=== PATIENT | female | born 1955 | race Caucasian/White ===

== ENCOUNTER 2022-05-23 05:39 | Inpatient (IN) ==
[2022-05-23] MEDS: NS 250 ML IV 250 ML IV SCH (06:15)
[2022-05-23] MEDS ORDERED: NS 250 ML IV 250 ML IV ONE (06:29)
[2022-05-23 08:02] VITALS: BMI 24.0
[2022-05-23] MEDS: LR 1,000 ML IV 1,000 ML IV SCH ×3 (08:52→20:12)
[2022-05-23] MEDS ORDERED: PROTONIX INJ 40 MG VIAL IVP SCH (09:00)
[2022-05-23 09:09] LABS: HEMATOCRIT 22.6 % (36.0-47.0); HEMOGLOBIN 7.8 g/dL (12.0-16.0)
[2022-05-23] MEDS ORDERED: PROVENTIL NEB TX 0.083% 2.5MG/ 3ML NEB ONE (13:24)
[2022-05-23] MEDS ORDERED: PROVENTIL NEB TX 0.083% 2.5MG/ 3ML ONE ×2 (13:25→23:00)
--- NOTE | 2022-05-23 13:54 | RAD ---
HISTORYSOB Relevant Clinical InformationSTUDYCHEST, 1 VIEWCOMPARISONNone availableFINDINGSThe cardiac silhouette is normal in size. No focal infiltrate or significant effusion is identified. Remote right-sided rib fractures noted. There is no pneumothorax.IMPRESSIONNo acute cardiopulmonary abnormality.Electronically signed by: SANJAY SANTOS (May 23, 2022 13:53:07)
--- NOTE | 2022-05-23 22:32 | DR.H&P ---
H&P History & Physical for Day of: H&P Date: 05/23/22 Chief Complaint Chief Complaint: Bloody bowel movements and Hgb= 6.1 Allergies Allergies Allergy/AdvReac Type Severity Reaction Status Date / Time codeine Allergy Intermediate Verified 05/23/22 22:52 History of Present Illness History of Present Illness: This 66 year old female presented to the emergency room in [place], [place] complaining of dark , tarry bloody stools. Her hemoglobin was 6. 1. CT scan of the abdomen showed evidence of possible thickening of the small bowel with consideration for lymphoma , possible enteritis . Patient also had evidence of incarcerated right inguinal hernia with early closed-loop obstruction suggesting surgical consultation. Patient transferred to [facility] under my care. Past medical history significant for coronary artery disease status post coronary artery stenting in the past . Hx of congestive heart failure. History of atrial fibrillation on an ticoagulation. History of diabetes. Continues with significant tobacco abuse. The patient also has had a history of salicylate overdose in the past. She was transfused two units of packed red blood cells and was transferred to my Hospital. Acetaminophen and salicylate levels were minimal. Also history of COPD. tarry Past Medical History Past Medical History: Anemia, CHF, COPD, Coronary Artery Disease (stent x1 ), Diabetes, Dyslipidemia and Hypertension Additional Medical History: tobacco abuse, atrial fibrillation Past Surgical History Surgical History: Other (tubal ligation) Family History Family Medical History: Cancer and Heart Failure Social History Does patient currently use any type of tobacco product: Yes Have you used tobacco products in the last 12 months: Yes Type of Tobacco Use: Cigarettes How many years tobacco product used: 50 Packs per day or dips/chews per day: 2 Alcohol Use: None Drug Use: None Medications Home Medications: codeine Allergy (Unknown, Verified 05/23/22 07:39) Actos 15 mg daily Protonix 40 mg daily Lasix 40 mg daily Eliquis 5 mg BID lopressor 12. 5 mg TID lisinopril 40 mg p a i d Montelukast 10 mg at bedtime albuterol inhalation treatment treatments PRN Labs Result Diagrams: 05/23/22 08:58 Labs: Laboratory Hgb 7.8 g/dL (12.0-16.0) L 05/23/22 08:58 Hct 22.6 % (36.0-47.0) L 05/23/22 08:58 B-Natriuretic Peptide 460 pg/mL (0-79) H 05/23/22 14:00 SARS-CoV-2 (PCR) Negative (NEGATIVE) 05/23/22 20:00 labs at [facility] , hemoglobin equals 6. 1 ,INR equal 1. 65 ,liver function test within normal limits ,Suzan and equals 1. 40, BUN = 68,acetaminophen level less than 10 normal being 0 to 10 ,salicylate level zero , Review of Systems Constitutional: See HPI Eyes: No Symptoms Reported ENT: No Symptoms Reported Respiratory: See HPI Cardiovascular: No Symptoms Reported Gastrointestinal: See HPI Genitourinary: No Symptoms Reported Musculoskeletal: No Symptoms Reported Skin: No Symptoms Reported Neurological: No Symptoms Reported Physical Exam Vital Signs: Temperature 97.5 F Pulse Rate [Left Radial] 96 Respiratory Rate 28 Blood Pressure [Left Arm] 103/55 O2 Sat by Pulse Oximetry 100 Oriented: Normal, Time, Person and Place Eyes: Normal Ear: Normal Nose: Normal Throat: Normal Respiratory: Clear Throughout Cardiovascular: Normal and Other (history of atrial fibrillation but is sinus rhythm now. ) : Normal Auscultation: Bowel Sounds: Normal Palpation: Other (mildly tender in epigastrium) Skin: Normal Musculoskeletal: Normal Psychiatric: Normal Mood Description: Calm Affect: Anxious Speech Pattern: Clear Assessment/Plan (1) GI bleed: Status: Acute Plan: Protonix drip. Transfuse blood as necessary. Sequential CBCs. Hold Eliquis . Currently in sinus rhythm. (2) Incarcerated right inguinal hernia: Status: Acute Plan: Once GI bleed is worked up will plan laparoscopy and repair of hernia and will be able to look at bowel as described on CT as being thickened. (3) Atrial fibrillation: Status: Acute Plan: Hold Eliquis, currently in sinus rhythm (4) Hypertension: Status: Acute Plan: usual home medications (5) Congestive heart failure: Status: Acute Plan: Continue lasix. Monitor with BNP. (6) Dyslipidemia: Status: Acute (7) COPD (chronic obstructive pulmonary disease): Status: Acute Plan: Montelukast and albuterol inhalers PRN (8) Diabetes 1.5, managed as type 1: Status: Acute Plan: sliding scale insulin (9) Nicotine abuse: Status: Acute Plan: Nicotine patch (10) Coronary artery disease: Status: Acute Plan: Begin home medications, cardiac surgeon , evaluate any chest pain Review H&P Reviewed: Yes Patient was examined?: Yes
[2022-05-23] MEDS: PROVENTIL NEB TX 0.083% 2.5MG/ 3ML NEB SCH (23:02)
[2022-05-23] MEDS: ACCUNEB 1.25 MG NEBULE NEB SCH (23:02)
[2022-05-23] MEDS ORDERED: NovoLIN R (or HumuLIN R) SC PRN (23:07)
[2022-05-23] MEDS ORDERED: ZOFRAN INJ 4 MG VIAL IVP PRN (23:28)
[2022-05-23] MEDS ORDERED: DILAUDID INJ IVP PRN (23:28)
[2022-05-23] MEDS ORDERED: NS 500 ML IV 500 ML IV ONE (23:59)
[2022-05-24] MEDS ORDERED: NS 500 ML IV 500 ML IV ONE (00:06)
[2022-05-24] MEDS: LR 1,000 ML IV 1,000 ML IV SCH ×2 (00:11→08:34)
[2022-05-24] MEDS: NS 250 ML IV 250 ML IV SCH ×2 (00:12→09:41)
[2022-05-24] MEDS: ACCUNEB 1.25 MG NEBULE NEB SCH (00:20)
[2022-05-24] MEDS: PROVENTIL NEB TX 0.083% 2.5MG/ 3ML NEB SCH ×2 (00:25→05:45)
[2022-05-24 00:28] LABS: BASOPHILS # (AUTO) 0.1 X10^3/uL (0.0-0.1); BASOPHILS % (AUTO) 0.6 % (0.2-1.0); EOSINOPHILS # (AUTO) 0.2 x10^3/uL (0.0-0.2); MONOCYTES # (AUTO) 0.8 x10^3/uL (0.3-0.8); NEUTROPHILS % (AUTO) 56.5 % (42.0-75.0)
[2022-05-24] MEDS ORDERED: NITRO-BID OINT 2% Multi-Dose tube TD ONE (00:28)
[2022-05-24 00:34] LABS: EOSINOPHILS % (AUTO) 2.6 % (0.9-2.9); LYMPHOCYTES # (AUTO) 2.9 X10^3/uL (1.3-2.9); LYMPHOCYTES % (AUTO) 31.4 % (21.0-51.0); MEAN CORPUSCULAR HEMOGLOBIN 30.4 pg (27.0-34.0); MEAN CORPUSCULAR HGB CONC 34.1 g/dL (33.0-35.0); MEAN CORPUSCULAR VOLUME 89.2 fL (80.0-100.0); MEAN PLATELET VOLUME 9.4 fL (7.4-11.0); MONOCYTES % (AUTO) 8.9 % (0.0-13.0); NEUTROPHILS # (AUTO) 5.1 x10^3/uL (2.2-4.8); RED BLOOD COUNT 1.66 X10^6/uL (3.5-5.4); RED CELL DISTRIBUTION WIDTH 17.5 % (11.6-16.5); WHITE BLOOD COUNT 9.1 X10^3/uL (3.6-10.0)
[2022-05-24 00:36] LABS: HEMOGLOBIN 5.1 g/dL (12.0-16.0)
[2022-05-24 00:37] LABS: HEMATOCRIT 14.8 % (36.0-47.0)
[2022-05-24 07:09] LABS: BASOPHILS % (AUTO) 0.5 % (0.2-1.0); EOSINOPHILS # (AUTO) 0.2 x10^3/uL (0.0-0.2); EOSINOPHILS % (AUTO) 2.1 % (0.9-2.9); LYMPHOCYTES # (AUTO) 1.9 X10^3/uL (1.3-2.9); LYMPHOCYTES % (AUTO) 26.2 % (21.0-51.0); MEAN CORPUSCULAR HEMOGLOBIN 31.3 pg (27.0-34.0); MEAN CORPUSCULAR HGB CONC 35.1 g/dL (33.0-35.0); MEAN PLATELET VOLUME 9.3 fL (7.4-11.0); MONOCYTES # (AUTO) 0.7 x10^3/uL (0.3-0.8); MONOCYTES % (AUTO) 9.8 % (0.0-13.0); NEUTROPHILS # (AUTO) 4.4 x10^3/uL (2.2-4.8); NEUTROPHILS % (AUTO) 61.4 % (42.0-75.0); RED BLOOD COUNT 1.92 X10^6/uL (3.5-5.4); RED CELL DISTRIBUTION WIDTH 17.3 % (11.6-16.5); WHITE BLOOD COUNT 7.2 X10^3/uL (3.6-10.0)
[2022-05-24 07:10] LABS: BLOOD UREA NITROGEN 68 mg/dL (7-18); CARBON DIOXIDE 24.7 mmol/L (21-32); CHLORIDE 107 mmol/L (98-107); CREATININE 1.72 mg/dL (0.55-1.02); SODIUM 139 mmol/L (136-145); eGFR NON BLACK RACES 32 (>60)
[2022-05-24 07:14] LABS: HEMATOCRIT 17.1 % (36.0-47.0)
[2022-05-24] MEDS ORDERED: ZESTRIL TAB 20 MG PO SCH (09:00)
[2022-05-24] MEDS ORDERED: PROTONIX INJ 40 MG VIAL 80 MG in NS 100 ML IV 80 ML IV SCH ×4 (09:00)
[2022-05-24] MEDS ORDERED: LOPRESSOR TAB 25 MG PO SCH (09:00)
[2022-05-24] MEDS ORDERED: NICOTINE PATCH TD SCH (09:00)
[2022-05-24] MEDS ORDERED: LASIX PO SCH (09:00)
[2022-05-24 11:12] VITALS: BP 100/57
--- NOTE | 2022-05-24 13:45 | W.DIS.FURT ---
Summary of Discharge Discharge Summary of Date Date of Exam: 05/24/22 Admission Date Date of Admission: 05/23/22 Admission Diagnosis Hospital Course: This 66 year old female presented to the emergency room in [facility] complaining of dark tarry stools and mild abdominal pain. Hemoglobin was 6. 1. CT scan of abdomen showed evidence of possible right inguinal hernia with incarceration and possible early closed loop obstruction with questionable enteritis of the small bowel versus lymphoma. She was transferred to [facility] in [facility] for higher level of care and I was consulted to see the patient. She was started on IV Protonix and was given two units of packed red blood cells. She was hempdynamilcally stable. Past medical history is extensive consistent with history of coronary artery disease and multiple coronary stents, tobacco abuse, congestive heart failure, diabetes, dyslipidemia, hypertension, and atrial fibrillation .Her medications included Lasix 40 mg daily, Actos 15 mg daily, Protonix 40 mg daily ,Eliquis 5 mg BID ,lopressor 12. 5 mg BID, lisinopril 40 mg daily , Montelukast 10 mg at bedtime, and albuterol inhalation treatment. She received two units of blood and was hemodynamically stable. F/U hemoglobin was 7.8 Later the afternoon of admission she complained of shortness of breath and wheezing which was treated with an albuterol inhaler. This resolved the problem. Chest x-ray showed no infiltrates and no evidence of pulmonary edema. The BNP was elevated at 460. She was started on her usual medication including Lasix. Repeat BNP was 202. I saw her the afternoon of the admission and she was well and s She was in sinus rhythm and stable. Later that night she complained of chest pain and repeat hemoglobin was now 5. 1. She was finishing her third unit of blood andwass still complaining of chest pain. This resolved completely once all three units of blood were infused. She has remained hemodynamically stable with no acute EKG changes. She has been seen by Cardiology, Dr Mendoza , who recommend transfer to [facility] for cardiac catheterization. I t is unclear whether she has continued to bleed. Protonix IV have been given intermittently and has been changed to a continuous drip. Abdomen remains benign. The chest pain and elevated troponin needs to be addressed before considering laparoscopy to assess the hernia and possible small bowel lymphoma. Vital Signs: Vital Signs (72 hours) 08/30/22 06:15 05/23/22 07:15 05/23/22 05:56 Temperature 98.2 F 98.0 F Pulse Rate Pulse Rate [Left Radial] 92 H 89 Respiratory Rate 18 18 Blood Pressure Blood Pressure [Left Arm] 144/66 133/64 O2 Sat by Pulse Oximetry 100 98 Oxygen Delivery Method Nasal Cannula Nasal Cannula Nasal Cannula Oxygen Flow Rate 2 FIO2% 05/23/22 07:00 05/23/22 08:00 05/23/22 09:00 Temperature 97.7 F 98.0 F Pulse Rate Pulse Rate [Left Radial] 91 H 81 Respiratory Rate 21 22 Blood Pressure Blood Pressure [Left Arm] 147/67 142/73 O2 Sat by Pulse Oximetry 100 98 Oxygen Delivery Method Nasal Cannula Nasal Cannula Nasal Cannula Oxygen Flow Rate 2 FIO2% 05/23/22 10:00 05/23/22 12:00 05/23/22 12:50 Temperature Pulse Rate Pulse Rate [Left Radial] 94 H 94 H Respiratory Rate 16 18 Blood Pressure Blood Pressure [Left Arm] 139/62 94/50 O2 Sat by Pulse Oximetry 98 100 Oxygen Delivery Method Nasal Cannula Nasal Cannula Oxygen Flow Rate FIO2% 35 05/23/22 13:00 05/23/22 14:00 05/23/22 15:00 Temperature 97.1 F L Pulse Rate Pulse Rate [Left Radial] 90 90 80 Respiratory Rate 24 25 H 18 Blood Pressure Blood Pressure [Left Arm] 93/56 113/54 87/52 O2 Sat by Pulse Oximetry 100 100 100 Oxygen Delivery Method Bi-pap Bi-pap Bi-pap Oxygen Flow Rate FIO2% 05/23/22 16:00 05/23/22 17:00 05/23/22 18:00 Temperature Pulse Rate Pulse Rate [Left Radial] 91 H 96 H 97 H Respiratory Rate 24 23 24 Blood Pressure Blood Pressure [Left Arm] 125/65 104/64 117/58 O2 Sat by Pulse Oximetry 100 93 L 100 Oxygen Delivery Method Bi-pap Nasal Cannula Nasal Cannula Oxygen Flow Rate FIO2% 05/23/22 19:00 05/23/22 19:00 05/23/22 20:00 Temperature 97.5 F L Pulse Rate Pulse Rate [Left Radial] 97 H 96 H Respiratory Rate 31 H 28 H Blood Pressure Blood Pressure [Left Arm] 117/58 103/55 O2 Sat by Pulse Oximetry 100 100 Oxygen Delivery Method Nasal Cannula Nasal Cannula Nasal Cannula Oxygen Flow Rate 4 FIO2% 05/23/22 19:00 05/23/22 21:00 05/23/22 22:00 Temperature Pulse Rate Pulse Rate [Left Radial] 95 H 93 H Respiratory Rate 21 16 Blood Pressure Blood Pressure [Left Arm] 125/61 104/56 O2 Sat by Pulse Oximetry 100 100 Oxygen Delivery Method Nasal Cannula Nasal Cannula Nasal Cannula Oxygen Flow Rate 4 FIO2% 05/23/22 23:00 05/24/22 00:00 05/24/22 00:25 Temperature Pulse Rate Pulse Rate [Left Radial] 89 94 H Respiratory Rate 19 26 H Blood Pressure Blood Pressure [Left Arm] 98/70 90/62 O2 Sat by Pulse Oximetry 100 96 Oxygen Delivery Method Nasal Cannula Nasal Cannula Nasal Cannula Oxygen Flow Rate 4 FIO2% 36 05/24/22 00:25 05/24/22 00:00 05/23/22 23:02 Temperature 97.9 F Pulse Rate 94 H Pulse Rate [Left Radial] 94 H Respiratory Rate 26 H Blood Pressure Blood Pressure [Left Arm] 90/62 O2 Sat by Pulse Oximetry 100 96 Oxygen Delivery Method Nasal Cannula Nasal Cannula Oxygen Flow Rate 4 FIO2% 36 05/23/22 23:02 05/24/22 01:00 05/24/22 02:00 Temperature Pulse Rate 91 H Pulse Rate [Left Radial] 91 H 96 H Respiratory Rate 22 30 H Blood Pressure Blood Pressure [Left Arm] 89/50 90/52 O2 Sat by Pulse Oximetry 95 100 100 Oxygen Delivery Method Nasal Cannula Nasal Cannula Oxygen Flow Rate FIO2% 05/24/22 05:00 05/24/22 04:00 05/24/22 03:00 Temperature 97.9 F 97.8 F Pulse Rate Pulse Rate [Left Radial] 91 H 94 H 92 H Respiratory Rate 24 20 20 Blood Pressure Blood Pressure [Left Arm] 95/50 96/52 103/50 O2 Sat by Pulse Oximetry 100 100 100 Oxygen Delivery Method Nasal Cannula Nasal Cannula Nasal Cannula Oxygen Flow Rate FIO2% 05/24/22 06:00 05/24/22 07:00 05/24/22 07:49 Temperature 97.7 F Pulse Rate 86 Pulse Rate [Left Radial] 82 Respiratory Rate 16 20 Blood Pressure Blood Pressure [Left Arm] 116/55 O2 Sat by Pulse Oximetry 100 100 Oxygen Delivery Method Nasal Cannula Nasal Cannula Oxygen Flow Rate 4 FIO2% 05/24/22 07:50 05/24/22 07:51 05/24/22 07:52 Temperature Pulse Rate 89 92 H 87 Pulse Rate [Left Radial] Respiratory Rate 23 18 21 Blood Pressure Blood Pressure [Left Arm] O2 Sat by Pulse Oximetry 100 100 100 Oxygen Delivery Method Oxygen Flow Rate FIO2% 05/24/22 07:53 05/24/22 07:54 05/24/22 07:55 Temperature Pulse Rate 94 H 99 H 95 H Pulse Rate [Left Radial] Respiratory Rate 18 20 24 Blood Pressure Blood Pressure [Left Arm] O2 Sat by Pulse Oximetry 100 100 100 Oxygen Delivery Method Oxygen Flow Rate FIO2% 05/24/22 07:56 05/24/22 07:57 05/24/22 07:58 Temperature Pulse Rate 93 H 94 H 94 H Pulse Rate [Left Radial] Respiratory Rate 22 19 22 Blood Pressure Blood Pressure [Left Arm] O2 Sat by Pulse Oximetry 100 100 100 Oxygen Delivery Method Oxygen Flow Rate FIO2% 05/24/22 07:59 05/24/22 08:00 05/24/22 08:00 Temperature 98.3 F Pulse Rate 94 H 93 H Pulse Rate [Left Radial] Respiratory Rate 18 20 Blood Pressure 112/64 Blood Pressure [Left Arm] O2 Sat by Pulse Oximetry 100 100 Oxygen Delivery Method Oxygen Flow Rate FIO2% 05/24/22 08:01 05/24/22 08:02 05/24/22 08:03 Temperature Pulse Rate 98 H 100 H 96 H Pulse Rate [Left Radial] Respiratory Rate 23 20 19 Blood Pressure Blood Pressure [Left Arm] O2 Sat by Pulse Oximetry 100 100 100 Oxygen Delivery Method Oxygen Flow Rate FIO2% 05/24/22 08:04 05/24/22 08:05 05/24/22 08:06 Temperature Pulse Rate 101 H 91 H 92 H Pulse Rate [Left Radial] Respiratory Rate 18 19 20 Blood Pressure Blood Pressure [Left Arm] O2 Sat by Pulse Oximetry 100 100 100 Oxygen Delivery Method Oxygen Flow Rate FIO2% 05/24/22 08:07 05/24/22 08:08 05/24/22 08:09 Temperature Pulse Rate 93 H 94 H 92 H Pulse Rate [Left Radial] Respiratory Rate 18 17 18 Blood Pressure Blood Pressure [Left Arm] O2 Sat by Pulse Oximetry 100 98 100 Oxygen Delivery Method Oxygen Flow Rate FIO2% 05/24/22 08:10 05/24/22 08:11 05/24/22 08:12 Temperature Pulse Rate 90 88 91 H Pulse Rate [Left Radial] Respiratory Rate 23 23 19 Blood Pressure Blood Pressure [Left Arm] O2 Sat by Pulse Oximetry 100 100 100 Oxygen Delivery Method Oxygen Flow Rate FIO2% 05/24/22 08:13 05/24/22 08:14 05/24/22 08:15 Temperature Pulse Rate 89 95 H 95 H Pulse Rate [Left Radial] Respiratory Rate 21 20 18 Blood Pressure Blood Pressure [Left Arm] O2 Sat by Pulse Oximetry 100 93 L 100 Oxygen Delivery Method Oxygen Flow Rate FIO2% 05/24/22 08:16 05/24/22 08:17 05/24/22 08:18 Temperature Pulse Rate 92 H 94 H 94 H Pulse Rate [Left Radial] Respiratory Rate 24 17 18 Blood Pressure Blood Pressure [Left Arm] O2 Sat by Pulse Oximetry 100 100 100 Oxygen Delivery Method Oxygen Flow Rate FIO2% 05/24/22 08:19 05/24/22 08:20 05/24/22 08:21 Temperature Pulse Rate 92 H 93 H 93 H Pulse Rate [Left Radial] Respiratory Rate 20 19 18 Blood Pressure Blood Pressure [Left Arm] O2 Sat by Pulse Oximetry 100 100 100 Oxygen Delivery Method Oxygen Flow Rate FIO2% 05/24/22 08:22 05/24/22 08:23 05/24/22 08:24 Temperature Pulse Rate 94 H 94 H 94 H Pulse Rate [Left Radial] Respiratory Rate 22 20 22 Blood Pressure Blood Pressure [Left Arm] O2 Sat by Pulse Oximetry 100 100 100 Oxygen Delivery Method Oxygen Flow Rate FIO2% 05/24/22 08:25 05/24/22 08:26 05/24/22 08:27 Temperature Pulse Rate 91 H 92 H Pulse Rate [Left Radial] Respiratory Rate 22 20 Blood Pressure 98/55 Blood Pressure [Left Arm] O2 Sat by Pulse Oximetry 100 100 Oxygen Delivery Method Oxygen Flow Rate FIO2% 05/24/22 08:27 05/24/22 08:28 05/24/22 08:29 Temperature Pulse Rate 89 91 H 89 Pulse Rate [Left Radial] Respiratory Rate 19 21 20 Blood Pressure Blood Pressure [Left Arm] O2 Sat by Pulse Oximetry 100 100 100 Oxygen Delivery Method Oxygen Flow Rate FIO2% 05/24/22 08:30 05/24/22 08:31 05/24/22 08:32 Temperature Pulse Rate 90 90 89 Pulse Rate [Left Radial] Respiratory Rate 19 21 20 Blood Pressure Blood Pressure [Left Arm] O2 Sat by Pulse Oximetry 100 100 100 Oxygen Delivery Method Oxygen Flow Rate FIO2% 05/24/22 08:33 05/24/22 08:34 05/24/22 08:35 Temperature Pulse Rate 90 90 90 Pulse Rate [Left Radial] Respiratory Rate 23 19 20 Blood Pressure Blood Pressure [Left Arm] O2 Sat by Pulse Oximetry 100 100 100 Oxygen Delivery Method Oxygen Flow Rate FIO2% 05/24/22 08:36 05/24/22 08:15 05/24/22 08:37 Temperature Pulse Rate 90 91 H Pulse Rate [Left Radial] Respiratory Rate 18 22 Blood Pressure Blood Pressure [Left Arm] O2 Sat by Pulse Oximetry 100 100 Oxygen Delivery Method Nasal Cannula Oxygen Flow Rate 4 FIO2% 36 05/24/22 08:38 05/24/22 08:39 05/24/22 08:40 Temperature Pulse Rate 92 H 96 H 95 H Pulse Rate [Left Radial] Respiratory Rate 21 29 H 20 Blood Pressure Blood Pressure [Left Arm] O2 Sat by Pulse Oximetry 100 100 100 Oxygen Delivery Method Oxygen Flow Rate FIO2% 05/24/22 08:41 05/24/22 08:42 05/24/22 08:43 Temperature Pulse Rate 94 H 93 H 91 H Pulse Rate [Left Radial] Respiratory Rate 20 20 19 Blood Pressure Blood Pressure [Left Arm] O2 Sat by Pulse Oximetry 100 100 100 Oxygen Delivery Method Oxygen Flow Rate FIO2% 05/24/22 08:44 05/24/22 08:45 05/24/22 08:46 Temperature Pulse Rate 92 H 90 94 H Pulse Rate [Left Radial] Respiratory Rate 20 24 22 Blood Pressure Blood Pressure [Left Arm] O2 Sat by Pulse Oximetry 100 100 100 Oxygen Delivery Method Oxygen Flow Rate FIO2% 05/24/22 08:47 05/24/22 08:47 05/24/22 08:48 Temperature Pulse Rate 92 H 89 Pulse Rate [Left Radial] Respiratory Rate 19 22 Blood Pressure 99/56 Blood Pressure [Left Arm] O2 Sat by Pulse Oximetry 100 100 Oxygen Delivery Method Oxygen Flow Rate FIO2% 05/24/22 08:49 05/24/22 08:50 05/24/22 08:51 Temperature Pulse Rate 87 90 91 H Pulse Rate [Left Radial] Respiratory Rate 20 24 22 Blood Pressure Blood Pressure [Left Arm] O2 Sat by Pulse Oximetry 100 100 100 Oxygen Delivery Method Oxygen Flow Rate FIO2% 05/24/22 08:52 05/24/22 08:53 05/24/22 08:54 Temperature Pulse Rate 86 88 90 Pulse Rate [Left Radial] Respiratory Rate 20 21 22 Blood Pressure Blood Pressure [Left Arm] O2 Sat by Pulse Oximetry 100 100 100 Oxygen Delivery Method Oxygen Flow Rate FIO2% 05/24/22 08:55 05/24/22 08:56 05/24/22 08:57 Temperature Pulse Rate 89 92 H 93 H Pulse Rate [Left Radial] Respiratory Rate 20 18 19 Blood Pressure Blood Pressure [Left Arm] O2 Sat by Pulse Oximetry 100 100 100 Oxygen Delivery Method Oxygen Flow Rate FIO2% 05/24/22 08:58 05/24/22 08:59 05/24/22 09:00 Temperature Pulse Rate 94 H 93 H Pulse Rate [Left Radial] Respiratory Rate 24 20 Blood Pressure 100/58 Blood Pressure [Left Arm] O2 Sat by Pulse Oximetry 100 100 Oxygen Delivery Method Oxygen Flow Rate FIO2% 05/24/22 09:00 05/24/22 09:01 05/24/22 09:02 Temperature Pulse Rate 95 H 95 H 96 H Pulse Rate [Left Radial] Respiratory Rate 23 20 18 Blood Pressure Blood Pressure [Left Arm] O2 Sat by Pulse Oximetry 98 98 98 Oxygen Delivery Method Oxygen Flow Rate FIO2% 05/24/22 09:03 05/24/22 09:04 05/24/22 09:05 Temperature Pulse Rate 94 H 94 H 92 H Pulse Rate [Left Radial] Respiratory Rate 17 20 23 Blood Pressure Blood Pressure [Left Arm] O2 Sat by Pulse Oximetry 98 98 98 Oxygen Delivery Method Oxygen Flow Rate FIO2% 05/24/22 09:06 05/24/22 09:07 05/24/22 09:08 Temperature Pulse Rate 95 H 91 H 92 H Pulse Rate [Left Radial] Respiratory Rate 20 23 20 Blood Pressure Blood Pressure [Left Arm] O2 Sat by Pulse Oximetry 99 100 100 Oxygen Delivery Method Oxygen Flow Rate FIO2% 05/24/22 09:09 05/24/22 09:10 05/24/22 10:06 Temperature Pulse Rate 90 89 89 Pulse Rate [Left Radial] Respiratory Rate 20 20 21 Blood Pressure Blood Pressure [Left Arm] O2 Sat by Pulse Oximetry 100 100 100 Oxygen Delivery Method Oxygen Flow Rate FIO2% 05/24/22 10:07 05/24/22 10:08 05/24/22 10:09 Temperature Pulse Rate 87 86 86 Pulse Rate [Left Radial] Respiratory Rate 21 18 19 Blood Pressure Blood Pressure [Left Arm] O2 Sat by Pulse Oximetry 100 100 100 Oxygen Delivery Method Oxygen Flow Rate FIO2% 05/24/22 10:10 05/24/22 10:11 05/24/22 10:12 Temperature Pulse Rate 89 87 87 Pulse Rate [Left Radial] Respiratory Rate 27 H 22 25 H Blood Pressure Blood Pressure [Left Arm] O2 Sat by Pulse Oximetry 100 100 100 Oxygen Delivery Method Oxygen Flow Rate FIO2% 05/24/22 10:13 05/24/22 10:14 05/24/22 10:15 Temperature Pulse Rate 89 85 86 Pulse Rate [Left Radial] Respiratory Rate 19 21 20 Blood Pressure Blood Pressure [Left Arm] O2 Sat by Pulse Oximetry 100 100 100 Oxygen Delivery Method Oxygen Flow Rate FIO2% 05/24/22 10:16 05/24/22 10:17 05/24/22 10:18 Temperature Pulse Rate 86 87 85 Pulse Rate [Left Radial] Respiratory Rate 30 H 21 19 Blood Pressure Blood Pressure [Left Arm] O2 Sat by Pulse Oximetry 100 99 100 Oxygen Delivery Method Oxygen Flow Rate FIO2% 05/24/22 10:19 05/24/22 10:20 05/24/22 10:21 Temperature Pulse Rate 89 88 85 Pulse Rate [Left Radial] Respiratory Rate 31 H 21 20 Blood Pressure Blood Pressure [Left Arm] O2 Sat by Pulse Oximetry 100 100 99 Oxygen Delivery Method Oxygen Flow Rate FIO2% 05/24/22 10:22 05/24/22 10:23 05/24/22 10:24 Temperature Pulse Rate 85 88 87 Pulse Rate [Left Radial] Respiratory Rate 35 H 30 H 26 H Blood Pressure Blood Pressure [Left Arm] O2 Sat by Pulse Oximetry 99 100 100 Oxygen Delivery Method Oxygen Flow Rate FIO2% 05/24/22 10:25 05/24/22 10:26 05/24/22 10:27 Temperature Pulse Rate 87 86 84 Pulse Rate [Left Radial] Respiratory Rate 41 H 20 23 Blood Pressure Blood Pressure [Left Arm] O2 Sat by Pulse Oximetry 100 100 100 Oxygen Delivery Method Oxygen Flow Rate FIO2% 05/24/22 10:28 05/24/22 10:29 05/24/22 10:30 Temperature Pulse Rate 83 85 86 Pulse Rate [Left Radial] Respiratory Rate 27 H 27 H 26 H Blood Pressure Blood Pressure [Left Arm] O2 Sat by Pulse Oximetry 100 99 100 Oxygen Delivery Method Oxygen Flow Rate FIO2% 05/24/22 10:31 05/24/22 10:32 05/24/22 10:33 Temperature Pulse Rate 86 86 85 Pulse Rate [Left Radial] Respiratory Rate 21 34 H 31 H Blood Pressure Blood Pressure [Left Arm] O2 Sat by Pulse Oximetry 100 100 100 Oxygen Delivery Method Oxygen Flow Rate FIO2% 05/24/22 10:34 05/24/22 10:35 05/24/22 10:36 Temperature Pulse Rate 86 94 H 88 Pulse Rate [Left Radial] Respiratory Rate 33 H 27 H 20 Blood Pressure Blood Pressure [Left Arm] O2 Sat by Pulse Oximetry 100 100 100 Oxygen Delivery Method Oxygen Flow Rate FIO2% 05/24/22 10:37 05/24/22 10:38 05/24/22 10:39 Temperature Pulse Rate 87 86 93 H Pulse Rate [Left Radial] Respiratory Rate 23 24 27 H Blood Pressure Blood Pressure [Left Arm] O2 Sat by Pulse Oximetry 100 99 99 Oxygen Delivery Method Oxygen Flow Rate FIO2% 05/24/22 10:40 05/24/22 10:41 05/24/22 10:42 Temperature Pulse Rate 89 90 84 Pulse Rate [Left Radial] Respiratory Rate 32 H 36 H 19 Blood Pressure Blood Pressure [Left Arm] O2 Sat by Pulse Oximetry 100 99 100 Oxygen Delivery Method Oxygen Flow Rate FIO2% 05/24/22 10:43 05/24/22 10:44 05/24/22 10:45 Temperature Pulse Rate 83 84 84 Pulse Rate [Left Radial] Respiratory Rate 20 20 19 Blood Pressure Blood Pressure [Left Arm] O2 Sat by Pulse Oximetry 100 100 100 Oxygen Delivery Method Oxygen Flow Rate FIO2% 05/24/22 10:46 05/24/22 10:47 05/24/22 10:48 Temperature Pulse Rate 83 83 83 Pulse Rate [Left Radial] Respiratory Rate 17 19 16 Blood Pressure Blood Pressure [Left Arm] O2 Sat by Pulse Oximetry 100 100 100 Oxygen Delivery Method Oxygen Flow Rate FIO2% 05/24/22 10:49 05/24/22 10:50 05/24/22 10:51 Temperature Pulse Rate 81 82 81 Pulse Rate [Left Radial] Respiratory Rate 16 17 16 Blood Pressure Blood Pressure [Left Arm] O2 Sat by Pulse Oximetry 100 100 100 Oxygen Delivery Method Oxygen Flow Rate FIO2% 05/24/22 10:52 05/24/22 10:53 05/24/22 10:54 Temperature Pulse Rate 79 78 80 Pulse Rate [Left Radial] Respiratory Rate 17 16 16 Blood Pressure Blood Pressure [Left Arm] O2 Sat by Pulse Oximetry 100 100 100 Oxygen Delivery Method Oxygen Flow Rate FIO2% 05/24/22 10:55 05/24/22 10:56 05/24/22 10:57 Temperature Pulse Rate 79 78 78 Pulse Rate [Left Radial] Respiratory Rate 16 15 16 Blood Pressure Blood Pressure [Left Arm] O2 Sat by Pulse Oximetry 100 100 100 Oxygen Delivery Method Oxygen Flow Rate FIO2% 05/24/22 10:58 05/24/22 10:59 05/24/22 11:00 Temperature Pulse Rate 77 77 Pulse Rate [Left Radial] Respiratory Rate 14 15 Blood Pressure 100/57 Blood Pressure [Left Arm] O2 Sat by Pulse Oximetry 100 100 Oxygen Delivery Method Oxygen Flow Rate FIO2% 05/24/22 11:00 05/24/22 11:01 05/24/22 11:02 Temperature Pulse Rate 77 77 77 Pulse Rate [Left Radial] Respiratory Rate 15 14 15 Blood Pressure Blood Pressure [Left Arm] O2 Sat by Pulse Oximetry 100 100 100 Oxygen Delivery Method Oxygen Flow Rate FIO2% 05/24/22 11:03 05/24/22 11:04 05/24/22 11:05 Temperature Pulse Rate 77 77 76 Pulse Rate [Left Radial] Respiratory Rate 15 15 15 Blood Pressure Blood Pressure [Left Arm] O2 Sat by Pulse Oximetry 100 100 100 Oxygen Delivery Method Oxygen Flow Rate FIO2% 05/24/22 11:06 05/24/22 11:07 05/24/22 11:08 Temperature Pulse Rate 79 79 79 Pulse Rate [Left Radial] Respiratory Rate 14 16 16 Blood Pressure Blood Pressure [Left Arm] O2 Sat by Pulse Oximetry 100 100 100 Oxygen Delivery Method Oxygen Flow Rate FIO2% 05/24/22 11:09 05/24/22 11:10 05/24/22 11:19 Temperature Pulse Rate 78 80 88 Pulse Rate [Left Radial] Respiratory Rate 15 19 36 H Blood Pressure Blood Pressure [Left Arm] O2 Sat by Pulse Oximetry 100 100 100 Oxygen Delivery Method Oxygen Flow Rate FIO2% 05/24/22 11:20 05/24/22 11:21 05/24/22 11:22 Temperature Pulse Rate 87 86 88 Pulse Rate [Left Radial] Respiratory Rate 24 33 H 33 H Blood Pressure Blood Pressure [Left Arm] O2 Sat by Pulse Oximetry 100 100 100 Oxygen Delivery Method Oxygen Flow Rate FIO2% 05/24/22 11:23 05/24/22 11:24 05/24/22 11:25 Temperature Pulse Rate 83 86 92 H Pulse Rate [Left Radial] Respiratory Rate 21 46 H 39 H Blood Pressure Blood Pressure [Left Arm] O2 Sat by Pulse Oximetry 100 100 100 Oxygen Delivery Method Oxygen Flow Rate FIO2% 05/24/22 11:26 05/24/22 11:27 05/24/22 11:28 Temperature Pulse Rate 93 H 83 84 Pulse Rate [Left Radial] Respiratory Rate 47 H 24 37 H Blood Pressure Blood Pressure [Left Arm] O2 Sat by Pulse Oximetry 100 99 99 Oxygen Delivery Method Oxygen Flow Rate FIO2% 05/24/22 11:29 05/24/22 11:30 05/24/22 11:31 Temperature Pulse Rate 88 83 86 Pulse Rate [Left Radial] Respiratory Rate 21 23 29 H Blood Pressure Blood Pressure [Left Arm] O2 Sat by Pulse Oximetry 99 99 99 Oxygen Delivery Method Oxygen Flow Rate FIO2% 05/24/22 11:32 05/24/22 11:33 05/24/22 11:34 Temperature Pulse Rate 87 83 85 Pulse Rate [Left Radial] Respiratory Rate 26 H 66 H 32 H Blood Pressure Blood Pressure [Left Arm] O2 Sat by Pulse Oximetry 99 99 100 Oxygen Delivery Method Oxygen Flow Rate FIO2% 05/24/22 11:35 05/24/22 11:36 05/24/22 11:37 Temperature Pulse Rate 91 H 87 86 Pulse Rate [Left Radial] Respiratory Rate 37 H 29 H 48 H Blood Pressure Blood Pressure [Left Arm] O2 Sat by Pulse Oximetry 98 99 99 Oxygen Delivery Method Oxygen Flow Rate FIO2% 05/24/22 11:38 05/24/22 11:39 05/24/22 11:40 Temperature Pulse Rate 86 90 88 Pulse Rate [Left Radial] Respiratory Rate 49 H 29 H 31 H Blood Pressure Blood Pressure [Left Arm] O2 Sat by Pulse Oximetry 99 99 99 Oxygen Delivery Method Oxygen Flow Rate FIO2% 05/24/22 11:41 05/24/22 11:42 05/24/22 11:43 Temperature Pulse Rate 86 83 82 Pulse Rate [Left Radial] Respiratory Rate 26 H 29 H 21 Blood Pressure Blood Pressure [Left Arm] O2 Sat by Pulse Oximetry 98 99 99 Oxygen Delivery Method Oxygen Flow Rate FIO2% 05/24/22 11:44 05/24/22 11:45 05/24/22 11:46 Temperature Pulse Rate 84 84 83 Pulse Rate [Left Radial] Respiratory Rate 20 20 20 Blood Pressure Blood Pressure [Left Arm] O2 Sat by Pulse Oximetry 99 99 100 Oxygen Delivery Method Oxygen Flow Rate FIO2% 05/24/22 11:47 05/24/22 11:48 05/24/22 11:49 Temperature Pulse Rate 83 87 83 Pulse Rate [Left Radial] Respiratory Rate 20 21 23 Blood Pressure Blood Pressure [Left Arm] O2 Sat by Pulse Oximetry 99 99 99 Oxygen Delivery Method Oxygen Flow Rate FIO2% 05/24/22 11:50 05/24/22 11:51 05/24/22 11:52 Temperature Pulse Rate 83 82 86 Pulse Rate [Left Radial] Respiratory Rate 18 18 26 H Blood Pressure Blood Pressure [Left Arm] O2 Sat by Pulse Oximetry 99 100 99 Oxygen Delivery Method Oxygen Flow Rate FIO2% 05/24/22 11:53 05/24/22 11:54 05/24/22 11:55 Temperature Pulse Rate 80 80 80 Pulse Rate [Left Radial] Respiratory Rate 22 22 21 Blood Pressure Blood Pressure [Left Arm] O2 Sat by Pulse Oximetry 100 100 100 Oxygen Delivery Method Oxygen Flow Rate FIO2% 05/24/22 11:56 05/24/22 11:57 05/24/22 11:58 Temperature Pulse Rate 87 88 84 Pulse Rate [Left Radial] Respiratory Rate 22 31 H 28 H Blood Pressure Blood Pressure [Left Arm] O2 Sat by Pulse Oximetry 100 100 100 Oxygen Delivery Method Oxygen Flow Rate FIO2% 05/24/22 11:59 05/24/22 12:00 05/24/22 12:01 Temperature Pulse Rate 84 86 81 Pulse Rate [Left Radial] Respiratory Rate 27 H 26 H 26 H Blood Pressure Blood Pressure [Left Arm] O2 Sat by Pulse Oximetry 100 100 100 Oxygen Delivery Method Oxygen Flow Rate FIO2% 05/24/22 12:02 05/24/22 12:03 05/24/22 12:04 Temperature Pulse Rate 82 83 87 Pulse Rate [Left Radial] Respiratory Rate 26 H 18 27 H Blood Pressure Blood Pressure [Left Arm] O2 Sat by Pulse Oximetry 100 100 100 Oxygen Delivery Method Oxygen Flow Rate FIO2% 05/24/22 12:05 05/24/22 12:06 05/24/22 12:07 Temperature Pulse Rate 88 84 85 Pulse Rate [Left Radial] Respiratory Rate 21 24 30 H Blood Pressure Blood Pressure [Left Arm] O2 Sat by Pulse Oximetry 100 100 100 Oxygen Delivery Method Oxygen Flow Rate FIO2% 05/24/22 12:08 Temperature Pulse Rate 89 Pulse Rate [Left Radial] Respiratory Rate 30 H Blood Pressure Blood Pressure [Left Arm] O2 Sat by Pulse Oximetry 95 Oxygen Delivery Method Oxygen Flow Rate FIO2% Labs: Laboratory Last Values WBC 7.2 X10^3/uL (3.6-10.0) 05/24/22 06:47 RBC 1.92 X10^6/uL (3.5-5.4) L 05/24/22 06:47 Hgb 6.0 g/dL (12.0-16.0) L* 05/24/22 06:47 Hct 17.1 % (36.0-47.0) L* 05/24/22 06:47 MCV 89.0 fL (80.0-100.0) 05/24/22 06:47 MCH 31.3 pg (27.0-34.0) 05/24/22 06:47 MCHC 35.1 g/dL (33.0-35.0) H 05/24/22 06:47 RDW 17.3 % (11.6-16.5) H 05/24/22 06:47 Plt Count 111 X10^3/uL (150.0-450.0) L 05/24/22 06:47 MPV 9.3 fL (7.4-11.0) 05/24/22 06:47 Neut % (Auto) 61.4 % (42.0-75.0) 05/24/22 06:47 Lymph % (Auto) 26.2 % (21.0-51.0) 05/24/22 06:47 Jerauld % (Auto) 9.8 % (0.0-13.0) 05/24/22 06:47 Eos % (Auto) 2.1 % (0.9-2.9) 05/24/22 06:47 Baso % (Auto) 0.5 % (0.2-1.0) 05/24/22 06:47 Neut # (Auto) 4.4 x10^3/uL (2.2-4.8) 05/24/22 06:47 Lymph # (Auto) 1.9 X10^3/uL (1.3-2.9) 05/24/22 06:47 Jerauld # (Auto) 0.7 x10^3/uL (0.3-0.8) 05/24/22 06:47 Eos # (Auto) 0.2 x10^3/uL (0.0-0.2) 05/24/22 06:47 Baso # (Auto) 0.0 X10^3/uL (0.0-0.1) 05/24/22 06:47 Absolute Nucleated RBC 0.3 /100WBC 05/24/22 06:47 Sodium 139 mmol/L (136-145) 05/24/22 06:47 Corrected Sodium TNP 05/24/22 06:47 Potassium 4.3 mmol/L (3.5-5.1) 05/24/22 06:47 Chloride 107 mmol/L (98-107) 05/24/22 06:47 Carbon Dioxide 24.7 mmol/L (21-32) 05/24/22 06:47 BUN 68 mg/dL (7-18) H 05/24/22 06:47 Creatinine 1.72 mg/dL (0.55-1.02) H 05/24/22 06:47 Est GFR (MDRD) Af Amer 38 (>60) L 05/24/22 06:47 Est GFR (MDRD) Non-Af 32 (>60) L 05/24/22 06:47 Glucose 92 mg/dL (65-99) 05/24/22 06:47 POC Glucose (mg/dL) 97 mg/dL (65-99) 05/24/22 05:37 Calcium 7.0 mg/dL (8.5-10.1) L 05/24/22 06:47 Creatine Kinase 47 Units/L (26-192) 05/24/22 11:50 Troponin I High Sens 363.8 ng/L (4.0-60.0) H* 05/24/22 11:50 B-Natriuretic Peptide 202 pg/mL (0-79) H 05/24/22 06:47 SARS-CoV-2 (PCR) Negative (NEGATIVE) 05/23/22 20:00 Blood Type O POSITIVE 05/24/22 01:19 Antibody Screen Negative 05/24/22 01:19 Crossmatch See Detail 05/24/22 01:19 Reason For Visit: GI BLEED, ANEMIA Discharge Diagnosis All Active Problems (Updated 05/23/22 @ 23:30 by Deejay Aviles) Coronary artery disease (Acute) Nicotine abuse (Acute) Diabetes 1.5, managed as type 1 (Acute) COPD (chronic obstructive pulmonary disease) (Acute) Dyslipidemia (Acute) Congestive heart failure (Acute) Hypertension (Acute) Atrial fibrillation (Acute) Incarcerated right inguinal hernia (Acute) GI bleed (Acute) Plan of Treatment: Continue with present treatment and follow up plan. Pt is to keep follow up appointment as instructed and take medications as ordered. Transfer to [facility] for cardiac catherization and they may alsso evaluate her abnormal CT abdominal findings . If not she cam come back to me once her cardiac issues have been resolved Discharge Medications Discharge Medications: codeine Allergy (Intermediate, Verified 05/23/22 22:52) Discharge Disposition Assessment: See hospital course dictation Discharge Plan Discharge Plan Hospital Course: This 66 year old female presented to the emergency room in [facility] complaining of dark tarry stools and mild abdominal pain. Hemoglobin was 6. 1. CT scan of abdomen showed evidence of possible right inguinal hernia with incarceration and possible early closed loop obstruction with questionable enteritis of the small bowel versus lymphoma. She was transferred to [facility] in [facility] for higher level of care and I was consulted to see the patient. She was started on IV Protonix and was given two units of packed red blood cells. She was hempdynamilcally stable. Past medical history is extensive consistent with history of coronary artery disease and multiple coronary stents, tobacco abuse, congestive heart failure, diabetes, dyslipidemia, hypertension, and atrial fibrillation .Her medications included Lasix 40 mg daily, Actos 15 mg daily, Protonix 40 mg daily ,Eliquis 5 mg BID ,lopressor 12. 5 mg BID, lisinopril 40 mg daily , Montelukast 10 mg at bedtime, and albuterol inhalation treatment. She received two units of blood and was hemodynamically stable. F/U hemoglobin was 7.8 Later the afternoon of admission she complained of shortness of breath and wheezing which was treated with an albuterol inhaler. This resolved the problem. Chest x-ray showed no infiltrates and no evidence of pulmonary edema. The BNP was elevated at 460. She was started on her usual medication including Lasix. Repeat BNP was 202. I saw her the afternoon of the admission and she was well and s She was in sinus rhythm and stable. Later that night she complained of chest pain and repeat hemoglobin was now 5. 1. She was finishing her third unit of blood andwass still complaining of chest pain. This resolved completely once all three units of blood were infused. She has remained hemodynamically stable with no acute EKG changes. She has been seen by Cardiology, Dr Mendoza , who recommend transfer to [facility] for cardiac catheterization. I t is unclear whether she has continued to bleed. Protonix IV have been given intermittently and has been changed to a continuous drip. Abdomen remains benign. The chest pain and elevated troponin needs to be addressed before considering laparoscopy to assess the hernia and possible small bowel lymphoma. Patient Disposition: [facility] Condition: Stable Health Concerns: Post Hospitalization: new medications and changes needed to prevent readmission or further decline. Pt educated and given instructions on all concerns. Care Plan Goals: Problem: Fluid Volume Deficit Goal: Maintain/Improved Adequate hydration. Instructions: Follow provided instructions. Follow up with primary physician as directed. Contact primary care physician or report to the closest Emergency Room if condition worsens. Plan of Treatment: Continue with present treatment and follow up plan. Pt is to keep follow up appointment as instructed and take medications as ordered. Transfer to [facility] for cardiac catherization and they may alsso evaluate her abnormal CT abdominal findings . If not she cam come back to me once her cardiac issues have been resolved Assessment: See hospital course dictation Prescription drug monitoring program results: PDMP was not reviewed Orders to Discharge Patient Discharge Orders: Discharge (Routine); Ordered 05/24/22 Ordered By: Walter Grayson Follow ups/Referrals Follow ups/Referrals: Deejay Aviles [Primary Care Provider] - 1 WEEK
[2022-05-24] MEDS ORDERED: SINGULAIR TAB 10 MG PO SCH (21:00)
== END 2022-05-24 12:25 | disposition short-term general hospital (02) | DRG 378 ==
LOC: ICU 05:39
PROVIDERS: ADMIT Surgery; ATTEND Surgery
DX: E11.65 Type 2 diabetes mellitus with hyperglycemia; I50.9 Heart failure, unspecified; I25.10 Atherosclerotic heart disease of native coronary artery without angina pectoris; D50.8 Other iron deficiency anemias; Z72.0 Tobacco use; R77.8 Other specified abnormalities of plasma proteins; E78.2 Mixed hyperlipidemia; K40.30 Unilateral inguinal hernia, with obstruction, without gangrene, not specified as recurrent; K92.2 Gastrointestinal hemorrhage, unspecified; I48.91 Unspecified atrial fibrillation; J44.9 Chronic obstructive pulmonary disease, unspecified; Z20.822 Contact with and (suspected) exposure to COVID-19; R06.02 Shortness of breath; Z79.01 Long term (current) use of anticoagulants